=== PATIENT | male | born 1995 | race Caucasian/White ===

== ENCOUNTER 2017-01-12 20:32 | Emergency (ER) | payer SELFPAY ==
[2017-01-12 21:01] VITALS: RESP 20
[2017-01-12 22:07] VITALS: BP 96/65; PULSE 73; TEMP 98.2; O2SAT 99
--- NOTE | 2017-01-12 22:07 | C.PDOC ---
History Of Present Illness 21 y/o male presents to the ER c/o moderate swelling and pain to the right ankle since yesterday. Patient notes he was able to bare weight yesterday, but today he began to have moderate swelling and bruising which prompted to the visit today. Denies weakness, numbness, or any other complaints. Time Seen by Provider: 01/12/17 21:39 Chief Complaint (Nursing): Lower Extremity Problem/Injury History Per: Patient History/Exam Limitations: no limitations Onset/Duration Of Symptoms: Days Current Symptoms Are (Timing): Still Present Severity: Mild Recent travel outside of the [place]: No Additional History Per: Patient - Ankle/Foot Description Of Injury: Other (Right ankle, jumping on trampoline) Past Medical History Reviewed: Historical Data, Nursing Documentation, Vital Signs Vital Signs: Last Vital Signs Temp 98.2 F 01/12/17 22:06 Pulse 73 01/12/17 22:06 Resp 20 01/12/17 21:00 BP 96/65 L 01/12/17 22:06 Pulse Ox 99 01/13/17 06:56 Family History: States: Unknown Family Hx - Social History Hx Alcohol Use: No Hx Substance Use: No Review Of Systems Musculoskeletal: Positive for: Foot Pain (Right ankle, pain and swelling) Skin: Positive for: Bruising (Right ankle) Neurological: Negative for: Weakness, Numbness Physical Exam - Physical Exam Appears: Non-toxic, No Acute Distress Skin: Warm, Dry Head: Atraumatic, Normacephalic Extremity: No Normal ROM (Limited on inversion and eversion), Tenderness (Both malleoli), Capillary Refill (<2secs), Swelling (Moderate swelling to the entire right ankle and proximal foot.), Other (Ecchymosis at the right foot ) Pulses: Left Dorsalis Pedis: Normal, Right Dorsalis Pedis: Normal Neurological/Psych: Oriented x3, Normal Motor, Normal Sensation Gait: Steady (Ambulatory with mild limp) ED Course And Treatment O2 Sat by Pulse Oximetry: 99 (RA) Pulse Ox Interpretation: Normal Progress Note: Plans: XRAY right ankle, Motrin, Reassess. XRAY right ankle shows no fractures or dislocations. Dennis wrap applied with Aircast and crutches given. Patient advised to not bear weight to right anklex 1 week and to follow up with PMD for reeval and ortho referral Disposition Counseled Patient/Family Regarding: Diagnosis, Need For Followup, Rx Given - Disposition Disposition: HOME/ ROUTINE Disposition Time: 22:03 Condition: STABLE Additional Instructions: Please follow up with PMD for Ortho referral Return to ER if worse Prescriptions: Ibuprofen [Motrin] 600 mg PO Q6H #20 tab Instructions: Ankle Sprain (ED), Ankle Stirrup Splint (ED) Forms: [facility] (Greek), Gym Excuse - Clinical Impression Clinical Impression: Ankle sprain - Scribe Statement The provider has reviewed the documentation as recorded by the Scribdamon chang All medical record entries made by the Rhondaibdamon were at my direction and personally dictated by me. I have reviewed the chart and agree that the record accurately reflects my personal performance of the history, physical exam, medical decision making, and the department course for this patient. I have also personally directed, reviewed, and agree with the discharge instructions and disposition.
--- NOTE | 2017-01-13 10:20 | RAD ---
PROCEDURE: Right Ankle Radiographs. HISTORY: right ankle swelling/bruising. r/o fx COMPARISON: None available. FINDINGS: BONES: No acute displaced fracture. JOINTS: No dislocation. SOFT TISSUES: Soft tissue swelling, greatest laterally. No evidence of radiopaque foreign body. OTHER FINDINGS: None. IMPRESSION: Soft tissue swelling, greatest laterally. No acute displaced fracture or dislocation identified. If symptoms persist or if there is clinical concern, x-ray follow-up in 7-10 days should be considered.
== END 2017-01-12 22:14 | disposition home or self-care (01) ==
LOC: C.ER 20:32
DX: S93.401A Sprain of unspecified ligament of right ankle, initial encounter (principal); X58.XXXA Exposure to other specified factors, initial encounter